=== PATIENT | male | born 1985 | race African-American/Black ===

== ENCOUNTER 2016-10-01 17:10 | Emergency (ER) | payer OTHER ==
[~2016-10-01] VITALS: Ht 172.7 cm; Wt 90.9 kg
[2016-10-01 17:11] VITALS: TEMP 97.7
[2016-10-01] MEDS ORDERED: MOTRIN 800800 MG/TAB PO (18:24)
[2016-10-01 18:50] VITALS: BP 127/84; PULSE 57
== END 2016-10-01 18:44 | disposition home or self-care (01) ==
LOC: COL.ER 17:10
DX: S40.012A Contusion of left shoulder, initial encounter (principal); F17.290 Nicotine dependence, other tobacco product, uncomplicated; V49.9XXA Car occupant (driver) (passenger) injured in unspecified traffic accident, initial encounter